=== PATIENT | female | born 1945 | race Caucasian/White ===

== ENCOUNTER 2019-06-21 21:47 | Inpatient (IN) | payer MEDICARE ==
[~2019-06-21] VITALS: Ht 154.9 cm; Wt 59.0 kg
[~2019-06-21 21:47] MED LIST: BUPR75; CALCAVITD; CETI5; CYCL10 PO; Calcitonin-Sal3.7 ML; DOCU100 PO; FENT50TP TOP; GABA300 PO; GAVILAX17 GM PO; HYDACE10B PO; LETR2.5 PO; LIDO5TP; LORA.5 PO; OXYC10TA19 PO; OXYC5; PANT40 PO; Percocet 10-321 EACH PO; SENN187 PO; TRAM50 PO; Tylenol325 MG PO; Voltaren100 GM
[2019-06-21 22:39] LABS: BASOPHILS ABSOLUTE AUTO 0.03 K/mm3 (0.00-0.23); BASOPHILS PERCENT AUTO 1 % (0-2); EOSINOPHILS ABSOLUTE AUTO 0.18 K/mm3 (0.00-0.68); EOSINOPHILS PERCENT AUTO 7 % (0-6); Hematocrit 37.5 % (33.0-51.0); Hemoglobin 12.3 g/dL (11.5-16.0); IMMATURE GRAN ABSOLUTE AUTO 0.01 K/mm3 (0.00-0.10); IMMATURE GRAN PERCENT AUTO 0 % (0-1); LYMPHOCYTES ABSOLUTE AUTO 0.96 K/mm3 (0.84-5.20); LYMPHOCYTES PERCENT AUTO 35 % (21-46); MONOCYTES ABSOLUTE AUTO 0.25 K/mm3 (0.16-1.47); MONOCYTES PERCENT AUTO 9 % (4-13); Mean Corpuscular HGB 30.3 pg (26.0-34.0); Mean Corpuscular HGB Conc 32.8 g/dL (31.5-36.5); Mean Corpuscular Volume 92 fL (80-100); Mean Platelet Volume 9.4 fL (9.1-12.4); NEUTROPHILS ABSOLUTE AUTO 1.28 K/mm3 (1.96-9.15); NEUTROPHILS PERCENT AUTO 47 % (41-73); Platelet Count 246 K/mm3 (150-400); RDW Coefficient Variation 14.3 % (11.7-14.2); RDW Standard Deviation 48.7 fL (35.1-46.3); Red Blood Cell Count 4.06 M/mm3 (3.80-5.20); White Blood Cell Count 2.71 K/mm3 (4.00-11.30)
[2019-06-21 22:56] LABS: Albumin, Blood 3.5 g/dL (3.4-5.0); Albumin/Globulin Ratio 1.2 (0.8-1.8); Bilirubin, Total 0.2 mg/dL (0.1-1.0); Bun/Creatinine Ratio 9.4 (12.0-20.0); Calcium, Blood 8.7 mg/dL (8.5-10.1); Creatinine, Blood 1.17 mg/dL (0.40-1.00); Potassium, Blood 4.1 mmol/L (3.5-5.5); Total Protein, Blood 6.5 g/dL (6.4-8.2)
--- NOTE | 2019-06-22 03:12 | NUR ---
0155 PT ADMITTED TO ROOM 359 PER CART FROM ER, ALERT AND ORIENTED X 4, ORIENTED TO ROOM. 0300 DR HINSON CALLED WITH ORDERS RECEIVED TO DISCONTINUE DILAUDID CHAUFFEUR MACHINE. PHARMACY ADVISED.
--- NOTE | 2019-06-22 04:23 | NUR ---
SHIFT SUMMARY: 81 Y/O FEMALE RESTED COMFORTABLY ALL SHIFT, DENIES DIZZINESS, PAIN OR NAUSEA; EAGER TO RETURN HOME TODAY, ABLE TO TRANSFER AND AMBULATE BATHROOM WITH GAIT SLOW AND STEADY, BED LOW POSITION, CALL LIGHT AT SIDE.
--- NOTE | 2019-06-22 04:41 | NUR ---
SHIFT SUMMARY: 73 Y/O FEMALE RESTED SUPINE POSITION AND DECLINED TO ALLOW SKIN CHECK OR TO REMOVE CLOTHES UNITL PAIN MEDICATION MADE HER MORE COMFORTABLE, FENTANYL 50MCG GIVEN IMMEDIATELY AFTER LEFT FEMUR PAIN RATED 9/10 WITH PAIN NOW 5/10, DENIES NAUSEA, LAST ATE 06/21/19 AT 1200 AND DRANK AT 1800, NPO SINCE ARRIVAL TO FLOOR, PT WEARING [place] BANDS AND DECLINED HAVE LOCKED UP AND WILL GIVE TO FAMILY IN AM.
[2019-06-22 05:27] LABS: Hematocrit 38.7 % (33.0-51.0); Hemoglobin 12.7 g/dL (11.5-16.0); Mean Corpuscular HGB Conc 32.8 g/dL (31.5-36.5); Mean Corpuscular Volume 92 fL (80-100); Mean Platelet Volume 9.4 fL (9.1-12.4); Platelet Count 255 K/mm3 (150-400); RDW Coefficient Variation 14.3 % (11.7-14.2); RDW Standard Deviation 47.9 fL (35.1-46.3); Red Blood Cell Count 4.23 M/mm3 (3.80-5.20); White Blood Cell Count 4.34 K/mm3 (4.00-11.30)
[2019-06-22 05:40] LABS: International Normalized Ratio 0.98; Prothrombin Time Results 10.4 Sec (9.7-11.5)
[2019-06-22 06:24] LABS: Albumin, Blood 3.5 g/dL (3.4-5.0); Albumin/Globulin Ratio 1.1 (0.8-1.8); Bilirubin, Total 0.3 mg/dL (0.1-1.0); Bun/Creatinine Ratio 9.3 (12.0-20.0); Calcium, Blood 8.5 mg/dL (8.5-10.1); Creatinine, Blood 1.07 mg/dL (0.40-1.00); Globulin, Blood 3.3 g/dL (2.2-4.0); Total Protein, Blood 6.8 g/dL (6.4-8.2)
--- NOTE | 2019-06-22 07:11 | NUR ---
0500 THIS NURSE ATTEMPTED TO CALL ORTHOPEDIC MD OPINION POLLS SURVEY WORKER--DR TAYLOR WITH NO RESPONSE, DAY SHIFT NURSE SALAS, PAULA ADVISED THAT CONSULT NOT DONE YET.
--- NOTE | 2019-06-22 09:50 | NUR ---
PT HAS BEEN AT A TEN WITH PAIN SINCE BEGINNING OF SHIFT. PT REFUSED BED LEON USE WHILE ACTUARY HAD HER CARE. PT WOULD NOT CONSIDER MOVING AT ALL. PT REQUESTED CLOTHES BE CUT OFF INSTEAD OF TURING. PT WAS BLADDER SCANNED AND 750MLS FOUND. GARCIAS ORDER WAS GIVEN FROM DR ROPER PRIOR TO GOING TO SURGERY.ORDER FOR DILAUDID GIVEN PRIOR TO GARCIAS PLACEMENT. PT DID NOT TOLERATE ANY MOVEMENT WELL AND SCREAMED OUT A COUPLE TIMES. ALL CARE WAS TAKEN TO BE CAREFUL POSSIBLE. GARCIAS WAS FLOWING WELL PT WAS TAKEN TO SURGERY. PT LEFT ROOM AT 0945.
--- NOTE | 2019-06-22 10:29 | NUR ---
06/22/19 1029 Isa Escobedo PT HAD GARCAIS PLACED BY FLOOR RN PRIOR TO COMING TO OR4. DRAINING CLEAR URINE.
--- NOTE | 2019-06-22 13:30 | NUR ---
PT ARRIVAL PT TO THE FLOOR FROM RECOVERY. PT IS AWAKE, ALERT & ORIENTED X4. RESP UNLABORED, VSS. GEO LARSON'S C/D/I. CIRC WNL. PT DENIES N/T. HER AND SON ARE AT THE BEDSIDE. GARCIAS REMAINS IN PLACE, CLEAR YELLOW URINE NOTED IN DRAINAGE BAG.
--- NOTE | 2019-06-22 14:07 | NUR ---
REPORT CALLED TO RECIEVING RN FOR ROOM 215 @ 6745.
--- NOTE | 2019-06-22 15:15 | NUR ---
CARE ASSUMED CARE ASSUMED OF PT AT APPROXIMATELY 1440. PT DROWSY BUT ORIENTED. PT APPEARS PALE. NO SHADOWING TO LEFT THIGH DRESSING. MILD SWELLING NOTED TO LEFT THIGH. PT GIVEN ZOFRAN FOR NAUSEA. DR. ROPER CONTACTED FOR IV FLUIDS AND PAIN MEDICATION. PT APPEARS TO BE RESTING WITH EYES CLOSED AT THIS TIME. WILL CONTINUE TO MONITOR.
--- NOTE | 2019-06-22 18:03 | NUR ---
SHIFT SUMMARY NO SIGNIFICANT CHANGES SINCE CARE ASSUMED OF PT. PT HAS RESTED WITH HER EYES CLOSED. FAMILY AT THE BEDSIDE. VSS. WILL MONITOR UNTIL REPORT TO ONCOMING RN.
[2019-06-23 00:35] LABS: BASOPHILS ABSOLUTE AUTO 0.01 K/mm3 (0.00-0.23); BASOPHILS PERCENT AUTO 0 % (0-2); EOSINOPHILS PERCENT AUTO 0 % (0-6); Hematocrit 23.3 % (33.0-51.0); Hemoglobin 7.9 g/dL (11.5-16.0); IMMATURE GRAN ABSOLUTE AUTO 0.01 K/mm3 (0.00-0.10); IMMATURE GRAN PERCENT AUTO 0 % (0-1); LYMPHOCYTES ABSOLUTE AUTO 0.66 K/mm3 (0.84-5.20); LYMPHOCYTES PERCENT AUTO 15 % (21-46); MONOCYTES ABSOLUTE AUTO 0.44 K/mm3 (0.16-1.47); MONOCYTES PERCENT AUTO 10 % (4-13); Mean Corpuscular HGB 31.2 pg (26.0-34.0); Mean Corpuscular HGB Conc 33.9 g/dL (31.5-36.5); Mean Corpuscular Volume 92 fL (80-100); Mean Platelet Volume 9.4 fL (9.1-12.4); NEUTROPHILS ABSOLUTE AUTO 3.27 K/mm3 (1.96-9.15); NEUTROPHILS PERCENT AUTO 75 % (41-73); Platelet Count 223 K/mm3 (150-400); RDW Coefficient Variation 14.1 % (11.7-14.2); RDW Standard Deviation 47.8 fL (35.1-46.3); Red Blood Cell Count 2.53 M/mm3 (3.80-5.20); White Blood Cell Count 4.39 K/mm3 (4.00-11.30)
--- NOTE | 2019-06-23 01:18 | NUR ---
Hermann MADRIGAL RN AND YARN FINISHER ASSISTED PT TO [facility] [place]. WHEN GETTING PT BACK TO BED,WAS MORE DIFFICULT THAN GETTING UP. PT WEAKER, ALMOST LIMP IN DESCRIPTION. INCREASING PALE.PT ABLE TO ANSWER QUESTIONS APPROPRIATELY, BUT PUPILS NOTED SLIGHLY SLUGGISH CONTINUED WITH C/O INCREASED PAIN. TAKES CHRONIC PAIN MEDS AT HOME.L THIGH WITH NON PITING EDEMA AND LIGHT BRUISING NOTED. DSNGS REMAIN DRY TO L HIP AND THIGH. WITH REVIEW, NOTED ESTIMATED EBL WITH SURGERY WAS 500 ML. VS TAKEN WHEN BACK TO BED AND STABLE. MILD TACHY NOTED. Hermann MADRIGAL RN CALLED TO DR HINSON AND REPORTED ASSESSMENT. DISCUSSED EBL,PALE.PAIN.RECEIVED ORDERS FOR BLOOD WORK,PAIN MEDS, CONT PULSE OX FOR HIGH RISK PAIN MANAGEMENT. PT ALERT,BUT WEAK. H/H NOTED SIGNIFICANT DROP FROM PREOP.Hermann MADRIGAL RN AGAIN CALLED DR HINSON AND REPORTED H/H DROP. TRANSFUSION ORDERED .
--- NOTE | 2019-06-23 03:21 | NUR ---
ASSUMED CARE. PT RECEIVING UNIT OF PRBC'S. NO SIGNS OF REACTION. PT IS COMFORTABLE. STATES PAIN IS MUCH BETTER. ICE PACKS TO LEFT THIGH.
--- NOTE | 2019-06-23 04:41 | NUR ---
POD 1 S/P LEFT IM NAIL. PT RECEIVING 1 UNIT PRBC AND WILL NEED REPEAT H/H AFTER TRANSFUSION. PT STILL VERY PALE BUT VSS. LEFT THIGH IS SWOLLEN BUT DOESNT APPEAR SWOLLEN ENOUGH TO JUSTIFY SUCH A DRASTIC DROP IN THE H/H. ICE STILL IN PLACE. DRESSING WITH JUST SCANT DRAINAGE. GARCIAS IN PLACE AND PRODUCING SUFFICIENT URINE OUTPUT. PAIN IS MANAGED BETTER WITH DILAUDID. PT CURRENTLY RESTING COMFORTABLY. CALL LIGHT IN REACH.
[2019-06-23 08:32] LABS: Hematocrit 25.5 % (33.0-51.0); Hemoglobin 8.7 g/dL (11.5-16.0)
--- NOTE | 2019-06-23 19:51 | NUR ---
SHIFT SUMMARY PT A&OX4, VSS, POD1 L HIP NAILING, AQUACEL CDI. PAIN MANAGED PER EMAR. KULDEEP PO, DENIES N&V. GARCIAS PATENT & DRAINING YELLOW URINE, STAT LOCK ON, OFF FLOOR. REPORT GIVEN TO TRISH MITCHELL.
[2019-06-23] MEDS ORDERED: BUPR150ER PO (21:04)
[2019-06-23] MEDS ORDERED: DULO60 PO (21:04)
[2019-06-24 05:51] LABS: BASOPHILS ABSOLUTE AUTO 0.01 K/mm3 (0.00-0.23); BASOPHILS PERCENT AUTO 0 % (0-2); EOSINOPHILS ABSOLUTE AUTO 0.01 K/mm3 (0.00-0.68); EOSINOPHILS PERCENT AUTO 0 % (0-6); Hematocrit 25.9 % (33.0-51.0); Hemoglobin 8.8 g/dL (11.5-16.0); IMMATURE GRAN ABSOLUTE AUTO 0.03 K/mm3 (0.00-0.10); IMMATURE GRAN PERCENT AUTO 1 % (0-1); LYMPHOCYTES ABSOLUTE AUTO 1.13 K/mm3 (0.84-5.20); LYMPHOCYTES PERCENT AUTO 24 % (21-46); MONOCYTES ABSOLUTE AUTO 0.58 K/mm3 (0.16-1.47); MONOCYTES PERCENT AUTO 12 % (4-13); Mean Corpuscular HGB 30.6 pg (26.0-34.0); Mean Corpuscular Volume 90 fL (80-100); Mean Platelet Volume 9.1 fL (9.1-12.4); NEUTROPHILS ABSOLUTE AUTO 2.91 K/mm3 (1.96-9.15); NEUTROPHILS PERCENT AUTO 62 % (41-73); Platelet Count 150 K/mm3 (150-400); RDW Coefficient Variation 14.6 % (11.7-14.2); RDW Standard Deviation 48.2 fL (35.1-46.3); Red Blood Cell Count 2.88 M/mm3 (3.80-5.20); White Blood Cell Count 4.67 K/mm3 (4.00-11.30)
[2019-06-24 06:07] LABS: Anion Gap 8 mmol/L (6-16); Blood Urea Nitrogen 7 mg/dL (8-24); Bun/Creatinine Ratio 8.9 (12.0-20.0); CO2, Blood 24 mmol/L (21-32); Calcium, Blood 7.2 mg/dL (8.5-10.1); Chloride, Blood 106 mmol/L (98-108); Creatinine, Blood 0.78 mg/dL (0.40-1.00); Glomerular Filtration Rate >60 (60-); Glucose, Blood 108 mg/dL (70-99); Potassium, Blood 3.1 mmol/L (3.5-5.5); Sodium, Blood 138 mmol/L (136-145)
--- NOTE | 2019-06-24 07:34 | NUR ---
SHIFT SUMMARY PT POD#2. AAOX4/ANXIOUS. DISCOMFORT CONTROLLED WITH 10MG ROXICODONE Q4P. NO NAUSEA/EMESIS. DRESSING TO LEFT HIP C/D/I. PT UP 2 PERSON MODERATE ASSIST TO BSC, LARGE BM THIS SHIFT. PT HOME MEDICATION LIST WAS VERIFIED WITH VIA TELEPHONE + HOSPITALIST NOTIFIED AND ORDERS OBTAINED FOR HOME MEDICATION DOSAGING. PT RESTING COMFORTABLY IN BED THIS AM. REPORT TO DAY SHIFT RN. CALL LIGHT WITHIN PT'S REACH.
[2019-06-24] MEDS ORDERED: FENT50TP TOP (14:58)
--- NOTE | 2019-06-24 16:47 | NUR ---
SHIFT SUMMARY PT HAS DONE BETTER THIS AFTERNOON. WAS ABLE TO MOVE TO THE BEDSIDE COMMODE. HAD GOOD BM, VOIDED WELL. PAIN BETTER CONTROLLED THIS AFTERNOON. GEO CHAVEZ CDI.
[2019-06-26 15:22] LABS: Performing Lab SYMBIODX; Test Name TISSUE BLOCK
== END 2019-06-24 16:49 | DRG 478 ==
LOC: ER 21:47 → MEDS 21:48 → SURS 21:48 → MEDS 21:48 → ER 21:48 → SURS 06-22 01:47 → MEDS 06-22 01:54 → SURS 06-22 13:30 → MEDS 06-22 13:30 → SURS 06-24 16:49
PROVIDERS: Emergency Medicine; Internal Medicine; Orthopaedic Surgery; ADMIT Internal Medicine
PROC: 30233N1 Transfusion of Nonautologous Red Blood Cells into Peripheral Vein, Percutaneous Approach (ICD-10-PCS; 2019-06-22)
PROC: 0QB70ZX Excision of Left Upper Femur, Open Approach, Diagnostic (ICD-10-PCS; principal; 2019-06-22 08:30)
PROC: 0QS706Z Reposition Left Upper Femur with Intramedullary Internal Fixation Device, Open Approach (ICD-10-PCS; 2019-06-22 08:30)
DX: S72.22XA Displaced subtrochanteric fracture of left femur, initial encounter for closed fracture (principal); F11.20 Opioid dependence, uncomplicated; C90.01 Multiple myeloma in remission; D62 Acute posthemorrhagic anemia; E78.5 Hyperlipidemia, unspecified; M81.0 Age-related osteoporosis without current pathological fracture; M10.9 Gout, unspecified; Z85.3 Personal history of malignant neoplasm of breast; N18.3 Chronic kidney disease, stage 3 (moderate); M19.90 Unspecified osteoarthritis, unspecified site
CPT/HCPCS: 36415; 36430; 71045; 73502; 80048; 80053; 85014; 85018; 85025; 85027; 85610; 86850; 86900; 86901; 86923; 88305; 88311; 88342; 88360; 94762; 96374; 96375; 96376; 97110; 97162; 97166; 97530; 99285-25; C1713; C1769; J0690; J1100; J1170; J1650; J2060; J2250; J2370; J2405; J2704; J3010; J7030; J7120; P9016

== ENCOUNTER 2021-05-05 18:24 | Emergency (ER) | payer MEDICARE ==
[~2021-05-05] VITALS: Ht 147.3 cm; Wt 54.4 kg
[~2021-05-05 18:24] MED LIST changes: +BUPR150ER PO; +DULO60 PO
[2021-05-05] MEDS ORDERED: LIDO700A20 TOP (22:10)
== END 2021-05-05 22:24 | disposition home or self-care (01) ==
LOC: ER 18:24
DX: M54.5 Low back pain (principal); G89.29 Other chronic pain; Z79.899 Other long term (current) drug therapy
CPT/HCPCS: 36415; 72128; 96374; 96375; 99283-25; A9270; J1170; J2405